=== PATIENT | female | born 1950 | race Caucasian/White ===

== ENCOUNTER → 2016-05-02 | Outpatient (CLI) | payer OTHER | LOC: BMCIMAGING 08:46 | DX: Z12.31 Encounter for screening mammogram for malignant neoplasm of breast (principal) | CPT/HCPCS: G0202 ==

== ENCOUNTER → 2016-06-21 | Outpatient (CLI) | payer OTHER | LOC: BMCIMAGING 12:55 | DX: Z12.39 Encounter for other screening for malignant neoplasm of breast (principal); R92.2 Inconclusive mammogram | CPT/HCPCS: G0206 ==

== ENCOUNTER 2016-11-10 10:02 | Day surgery (SDC) | payer OTHER ==
[2016-11-10] MEDS ORDERED: ASPIRIN EC 325 MG TAB PO ONE (10:05)
[2016-11-10] MEDS ORDERED: NS 1,000 ML IV ONE (10:05)
[2016-11-10] MEDS ORDERED: FAMOTIDINE 20 MG TAB PO ONE (10:05)
[2016-11-10] MEDS ORDERED: DIAZEPAM 5 MG TAB PO ONE (10:05)
[2016-11-10] MEDS ORDERED: diphenhydrAMINE 25 MG CAP PO ONE (10:05)
--- NOTE | 2016-11-10 10:22 | CPEKG ---
Heart Rate: 73 RR Interval: 822 P-R Interval: 164 QRSD Interval: 76 QT Interval: 388 QTC Interval: 428 P [place]: 77 QRS [place]: 17 T Wave [place]: 43 EKG Severity - ABNORMAL ECG - EKG Impression: SINUS RHYTHM EKG Impression: RAA, CONSIDER BIATRIAL ABNORMALITIES Electronically Signed By: Alysia Lewis 10-Nov-2016 21:21:41
[2016-11-10 10:33] LABS: % IMMATURE GRANULYOCYTES 0.2 % (0.0-1.1); ABSOLUTE IMMATURE GRANULOCYTES 0.01 10^3/uL (0.00-0.10); ADD DIFF? NO; ADD MORPH? NO; ADD SCAN? NO; ATYPICAL LYMPHOCYTE FLAG 0 (0-99); FRAGMENT RBC FLAG 0 (0-99); HEMATOCRIT 43.5 % (38.0-47.0); HEMOGLOBIN 14.8 g/dL (12.6-16.3); LEFT SHIFT FLG 0 (0-99); LIPEMIA HEMOLYSIS FLAG 90 (0-99); MEAN CELL HEMOGLOBIN 32.4 pg (27.9-34.1); MEAN CELL VOLUME 95.2 fL (81.5-99.8); MEAN PLATELET VOLUME 9.6 fL (8.7-11.7); PLATELET CLUMPS FLAG 10 (0-99); PLATELET COUNT 238 10^3/uL (150-400); RED BLOOD CELL COUNT 4.57 10^6/uL (4.18-5.33)
[2016-11-10 10:47] LABS: PROTIME(PATIENT) 13.1 SEC (12.0-15.0)
[2016-11-10 10:50] LABS: ANION GAP 13 mEq/L (8-16); CALCIUM 9.6 mg/dL (8.5-10.4); CARBON DIOXIDE 24 mEq/l (22-31); CHLORIDE 103 mEq/L (97-110); CHOLESTEROL 267 mg/dL (140-220); CHOLESTEROL/HDL RATIO 2.43 RATIO (1.00-4.44); CREATININE 0.9 mg/dL (0.6-1.0); GLOMERULAR FILTRATION RATE > 60; GLUCOSE 96 mg/dL (70-100); HIGH DENSITY LIPOPROTEIN 110 mg/dL (40-85); LDL/HDL RATIO 1.31 RATIO (1.00-3.22); LOW DENSITY LIPOPROTEIN 144 mg/dL (80-100); MAGNESIUM 1.9 mg/dL (1.6-2.3); NON-HIGH DENSITY LIPOPROTEIN 157 mg/dL (90-129); POTASSIUM 4.2 mEq/L (3.5-5.2); SODIUM 140 mEq/L (134-144); TRIGLYCERIDE 68 mg/dL (35-135); VERY LOW DENSITY LIPOPROTEINS 13 mg/dL (8-25)
[2016-11-10] MEDS ORDERED: LIDOCAINE 1% 300 MG/30 ML SDV ONE (10:51)
[2016-11-10] MEDS ORDERED: fentaNYL 100 MCG/2 ML INJ ONE (10:51)
[2016-11-10] MEDS ORDERED: HEPARIN 10,000 UNIT/10 ML MDV ONE (10:51)
[2016-11-10] MEDS ORDERED: MIDAZOLAM 2 MG/2 ML VIAL ONE (10:51)
[2016-11-10] MEDS ORDERED: VERAPAMIL 5 MG/2 ML VIAL ONE (10:52)
[2016-11-10] MEDS ORDERED: IOPAMIDOL (ISOVUE-370) 150 ML BTL IV ONE (10:52)
--- NOTE | 2016-11-10 11:02 | PDHPUP ---
History & Physical Update H&P update statement: This history and physical update is based on an assessment of the patient which was completed after admission or registration (within 24 hours), but prior to the surgery/procedure. H&P update: H&P reviewed & patient examined, no change in patient's condition since H&P completed
--- NOTE | 2016-11-10 11:02 | PDPROPOC ---
Sedation Plan of Care Sedation Plan of Care: vital signs stable, mental status noted, patient educated of risks, benefits, alternatives, patient can tolerate sedation ASA Classification: ASA 1 Planned drugs: fentanyl, midazolam Mallampati Score: Class 1 Mallampati Reference Image: Patient passed 3-3-2 rule?: Yes (332)
[2016-11-10] MEDS ORDERED: NITROGLYCERIN 0.4 MG BTL SL PRN (11:42)
--- NOTE | 2016-11-10 12:17 | PDDXCAT ---
Diagnostic Cath Note - . Date: 11/10/16 Ssis Developer: Yeyo Indication: other (PVC's with exercise test abnormalities) - Procedure Access: left wrist Procedure: left heart catheterization - Materials Left Heart Cath size: 5F Left Heart Cath materials: JL3.5, JR4.0, pigtail - Findings-Left Heart Catheterization LM: normal LAD: 20% luminal irregularity mid LAD LCX: normal RCA: 20% luminal irregularity mid rca EDP: 10 mmHg LVEF: 65% Wall motion: normal Complications: none Estimated blood loss: <50ml Closure method: TR Band Assessment: Mild non-obstructive coroanry artery disease. Normal LV function. PVC's Plan: Secondary prevention. Patient Problems: Problems Problem Status Onset PVC (premature ventricular contraction) Acute
== END 2016-11-10 15:13 | disposition home or self-care (01) ==
LOC: FCATH 10:02
PROVIDERS: ATTEND Internal Medicine Interventional Cardiology
PROC: 4A023N7 Measurement of Cardiac Sampling and Pressure, Left Heart, Percutaneous Approach (ICD-10-PCS; principal; 2016-11-10)
PROC: B2111ZZ Fluoroscopy of Multiple Coronary Arteries using Low Osmolar Contrast (ICD-10-PCS; principal; 2016-11-10)
PROC: B2151ZZ Fluoroscopy of Left Heart using Low Osmolar Contrast (ICD-10-PCS; principal; 2016-11-10)
DX: I49.3 Ventricular premature depolarization (principal); I25.10 Atherosclerotic heart disease of native coronary artery without angina pectoris; R07.89 Other chest pain; R06.09 Other forms of dyspnea; R53.83 Other fatigue; R68.89 Other general symptoms and signs; I10 Essential (primary) hypertension; E78.5 Hyperlipidemia, unspecified; E11.9 Type 2 diabetes mellitus without complications
CPT/HCPCS: 93005; 93458; C1769; J1644; J2250; J3010; Q9967

== ENCOUNTER 2016-11-18 12:53 | Emergency (ER) | payer OTHER ==
[2016-11-18 13:03] VITALS: RESP 18
--- NOTE | 2016-11-18 13:11 | EDPHY ---
H & P Stated Complaint: Card cath last week;sxs prior to cath still present (dizzy, chest tightness) Time Seen by Provider: 11/18/16 13:07 HPI/ROS: CHIEF COMPLAINT: Chest tightness, dizziness HISTORY OF PRESENT ILLNESS: This patient is a 66 year old female with recent cardiac catheterization 11/10/[address] Orona complaining of unresolved chest tightness and dizziness. During the catheterization, a small amount of heart disease and plaque was note but this does not explain her symptoms of frequent PVCs, chest tightness, and dizziness. She initially visited her primary care provider Dr. Maldonado, who noted the PVCs on an EKG. She followed up with Dr. Jameson, monitoring tech, the next morning, and then was scheduled for catheterization with Dr. Orona. She had felt slightly dizzy and lightheaded for two months prior to evaluation by her primary care physician. Today she woke up at 6:30 am with chest pressure and "fluttering". She is feeling poorly and very dizzy when standing and became frightened by the increase in chest pressure. Her chest sensation feels like hands squeezing her heart. A deep breath can sometimes relieve this pressure. She had not yet followed up with Dr. Jameson for continued evaluation. She denies fever, shortness of breath, nausea or vomiting, or other associated symptoms. REVIEW OF SYSTEMS: A 10 point review of systems was performed and is negative with the exception of the elements mentioned in the history of present illness. - Personal History Current Tetanus Diphtheria and Acellular Pertussis (TDAP): Yes - Medical/Surgical History PMH: Hypothyroid. Cardiac catheterization 11/10/16. Other PMH: Hashimotos. palpitations - Social History Smoking Status: Never smoked Additional Social History: at bedside. Lives in [place]. . Nonsmoker. - Physical Exam Exam: General Appearance: Alert, no distress Eyes: Pupils equal and round, no conjunctival pallor or injection ENT, Mouth: Mucous membranes moist Neck: Normal inspection Respiratory: Lungs are clear to auscultation Cardiovascular: Irregular rate and rhythm Gastrointestinal: Abdomen is soft and non- tender Neurological: A&O, nonfocal, normal gait Skin: Warm and dry, no rash Extremities: Nontender, no pedal edema Psychiatric: Mood and affect normal Constitutional: Initial Vital Signs Temperature (C) 36.6 C 11/18/16 12:55 Heart Rate 57 L 11/18/16 12:55 Respiratory Rate 18 11/18/16 12:55 Blood Pressure 157/94 H 11/18/16 12:55 O2 Sat (%) 99 11/18/16 12:55 O2 Delivery Mode Room Air Allergies/Adverse Reactions: No Known Drug Allergies Allergy (Verified 11/18/16 12:59) Home Medications: Medication Instructions Recorded Cholecalciferol Vit D3 [Vitamin D3 1,000 units PO HS 11/10/16 (*)] Cyanocobalamin [Vitamin B12 (*)] 1,000 mcg PO HS 11/10/16 Levothyroxine [Synthroid 75 mcg 75 mcg PO DAILY06 11/10/16 (*)] Medical Decision Making - Diagnostics EKG Interpretation: EKG interpreted by me reveals sinus rhythm, rate 63, with ventricular trigeminy , no ST/T changes. Interpretation: Abnormal EKG, frequent PVCs ED Course/Re-evaluation: This patient presents with intermittent chest pressure and dizziness, worsened today. front desk monitor reveals frequent PVCs. EKG reveals ventricular bigeminy , without evidence of ischemia. She may be experiencing symptoms related to symptomatic PVCs, or may have prolonged pauses/other etiology of sx. Given recent cardiac catheterization with mild CAD, it is unlikely that she has an acute coronary syndrome. However given her near syncopal episode today, I feel that is reasonable to admit her for telemetry and further cardiac evaluation. The hospitalist service was consulted for admission. Ultimately, this patient declined admission. I tried to convince her of the need for admission, but she declines and will go home. She clearly understands the risks and benefits of this decision. She will return for worsening dizziness, syncope or other concerns. Differential Diagnosis: Differential diagnosis includes though it is not limited to dysrhythmia, pneumonia, pulmonary embolism, aortic dissection, pericarditis, acute coronary syndrome. - Data Points Laboratory Results: Laboratory Results 11/18/16 13:20 11/18/16 13:20 Departure - Departure Disposition: [facility] Inpatient Acute Clinical Impression: Chest pressure, PVC (premature ventricular contraction) Condition: Good Instructions: Chest Pain (ED) Additional Instructions: I have advised admission today for further evaluation of dizziness and chest pressure. Return for recurrent or worsening symptoms or any concerns. Follow up with Dr. Jameson on Sunday. Referrals: Claudia Maldonado MD [Primary Care Provider] - As per Instructions Julien Jameson MD [Medical Doctor] - As per Instructions Report Scribed for: Susy Juárez Report Scribed by: Prtaibha Gregorio Date of Report: 11/18/16 Time of Report: 13:10 Physician Review and Approval Statement: 11/18/16 13:10 Portions of this note were transcribed by a medical lab tech instructor. I personally performed a history, physical exam, medical decision making, and confirmed accuracy of information the transcribed note.
--- NOTE | 2016-11-18 13:24 | CPEKG ---
Heart Rate: 63 RR Interval: 952 P-R Interval: 172 QRSD Interval: 76 QT Interval: 416 QTC Interval: 426 P [place]: 76 QRS [place]: 23 T Wave [place]: 37 EKG Severity - ABNORMAL ECG - EKG Impression: SINUS RHYTHM EKG Impression: VENTRICULAR TRIGEMINY Electronically Signed By: Susy Juárez 18-Nov-2016 15:02:29
[2016-11-18 13:28] LABS: % IMMATURE GRANULYOCYTES 0.3 % (0.0-1.1); ABSOLUTE IMMATURE GRANULOCYTES 0.02 10^3/uL (0.00-0.10); ADD DIFF? NO; ADD MORPH? NO; ADD SCAN? NO; ATYPICAL LYMPHOCYTE FLAG 10 (0-99); FRAGMENT RBC FLAG 0 (0-99); HEMOGLOBIN 15.1 g/dL (12.6-16.3); LEFT SHIFT FLG 0 (0-99); LIPEMIA HEMOLYSIS FLAG 80 (0-99); MEAN CELL HEMOGLOBIN 31.6 pg (27.9-34.1); MEAN CELL HEMOGLOBIN CONCENTR. 32.8 g/dL (32.4-36.7); MEAN CELL VOLUME 96.2 fL (81.5-99.8); MEAN PLATELET VOLUME 9.7 fL (8.7-11.7); PLATELET CLUMPS FLAG 0 (0-99); PLATELET COUNT 254 10^3/uL (150-400); RED BLOOD CELL COUNT 4.78 10^6/uL (4.18-5.33)
[2016-11-18 13:40] LABS: ANION GAP 13 mEq/L (8-16); CALCIUM 10.1 mg/dL (8.5-10.4); CARBON DIOXIDE 24 mEq/l (22-31); CHLORIDE 102 mEq/L (97-110); CREATININE 0.9 mg/dL (0.6-1.0); GLOMERULAR FILTRATION RATE > 60; GLUCOSE 87 mg/dL (70-100); POTASSIUM 3.9 mEq/L (3.5-5.2); SODIUM 139 mEq/L (134-144)
[2016-11-18 13:52] LABS: TROPONIN I < 0.012 ng/mL (0.000-0.034)
[2016-11-18] MEDS ORDERED: ONDANSETRON DISINTEGRATING 4 MG TAB PO PRN (14:08)
[2016-11-18] MEDS ORDERED: ACETAMINOPHEN 325 MG TAB PO PRN (14:08)
[2016-11-18] MEDS ORDERED: ONDANSETRON 4 MG/2 ML VIAL IVP PRN (14:08)
[2016-11-18 14:30] VITALS: O2SAT 96
[2016-11-18 14:33] LABS: TROPONIN I < 0.012 ng/mL (0.000-0.034)
[2016-11-18 14:45] VITALS: PULSE 74
[2016-11-18 15:17] VITALS: BP 138/85; TEMP 98.1
--- NOTE | 2016-11-18 19:53 | GCON ---
[f rep st] CONSULTATION [facility] MEDICINE CONSULTATION. DATE OF CONSULTATION: 11/18/2016 REASON FOR CONSULTATION: Symptomatic trigeminy. HISTORY OF PRESENT ILLNESS: A 66-year-old female with a history of hypothyroidism, managed by Dr. Baer in the outpatient setting, who presents with reported 6-8 weeks of intermittent chest pressure an d intermittent dizziness that the patient was evaluated in the outpatient setting by Dr. Maldonado and susan bsos Dr. Lytic lesion. The patient underwent cardiac catheterization 1 week ago today and was fo und to have nonocclusive coronary disease with stenoses no greater than 20% in any of her vessels. T he patient returned home and continued to have her intermittent symptoms the morning of presentation today. Describes the same symptoms, but with a severity that was more intense than what she had expe rienced previously. Therefore, presented to the ED. She denies any headache, vision changes. Denie s any chest pain different from the pressure that she intermittently describes. Denies any shortness of breath. Denies abdominal pain, diarrhea, constipation, dysuria, hematuria, or lower extremity ed cortez. She is very healthy, active, plays a lot a tennis, and is not a worrier. PAST MEDICAL HISTORY: 1. Hypothyroidism. 2. Chronic intermittent chest pressure and dizziness. SOCIAL HISTORY: Negative for tobacco. One glass of wine in the evenings. No illicit drugs or marij uana. FAMILY HISTORY: Negative for heart disease. REVIEW OF SYSTEMS: A 10-point review of systems was negative, with the exception of that reported in the HPI. PHYSICAL EXAMINATION: VITAL SIGNS: Blood pressure is 137/98, heart rate 78, respiratory rate 18, ox ygen saturation 96% on room air, temperature 36.9. GENERAL: This is a pleasant, middle-aged female in no acute distress. HEENT: Notable for moist mucous membranes. Eye exam is negative for any icte lencho. CARDIAC: The patient is regular rate, intermittent irregularity in her rhythm. No murmurs, ga llops, or rubs. PULMONARY: The patient is clear to auscultation bilaterally. MUSCULOSKELETAL: Neg ative for any lower extremity edema. SKIN: Negative for any rashes. NEUROLOGIC: She is alert and oriented x3. PSYCHIATRIC: She is pleasant and cooperative on interview and examination. LABORATORY DATA: White count is 7.7, creatinine is 0.9. Troponin less than 0.012. D-dimer less archana n 0.27. EKG, which I personally reviewed and interpreted, shows trigeminy with no acute ST-T changes. Chest x-ray, which I personally reviewed and interpreted, shows no acute infiltrates or edema. ASSESSMENT AND PLAN: This is a 66-year-old female with chronic intermittent chest pressure and dizzi ness. 1. Dizziness. The patient's vital signs are stable. We are seeing trigeminy on telemetry. It is p ossible that the patient is having prolonged pauses with this rhythm that may be making her symptomat ic, or another dysrhythmia that we have not seen. After discussion with the patient and information from her previous workup and monitoring in the outpatient setting, the patient is opting to leave fro m the emergency department and present to Dr. Jameson's clinic on Sunday for Holter monitoring. She estrada s endorse poor p.o. intake this morning, but wishes not to have IV fluids prior to her disposition. Simply wants to returned home and improve her p.o. intake. We did let her know she can certainly ret urn to the Emergency Department if she feels worried prior to presenting the Dr. Jameson's clinic on Sun. 2. Chest pressure. The patient had cardiac catheterization in the last week that was negative for a ny coronary artery disease. Troponin is negative here and heart tracing is inconsistent with acute i njury. Again, we educated the patient that we cannot confirm her lack of having a heart attack witho ut a 2nd heart marker at a 6-hour interval. However, the probability that she is having an ischemic episode is quite low, particularly with the information we see in the catheterization 1 week ago. Th e patient is opting again to return home and follow in the outpatient setting. 3. Hypothyroidism. The patient said she has had a recent TSH which is normal. She can continue to follow with Dr. Maldonado in the outpatient setting. DISPOSITION: The patient will leave from the ER and presented to Dr. Jameson's office on Sunday for nabil taryn event monitoring and correlation of her intermittent chronic symptoms already evaluated with her long-term monitoring status. I have discussed the case with the emergency room physician, Dr. Juárez. She will discharge the june villarreal from the ED. /[id number]/MODL
[2016-11-19] MEDS ORDERED: ENOXAPARIN 40 MG/0.4 ML SYR SC SCH (09:00)
== END 2016-11-18 15:16 | disposition home or self-care (01) ==
LOC: UNDOADMOB 14:08
DX: R07.9 Chest pain, unspecified (principal); R42 Dizziness and giddiness; E03.9 Hypothyroidism, unspecified